=== PATIENT | female | born 1960 | race Caucasian/White ===

== ENCOUNTER → 2016-12-26 | Outpatient (CLI) | payer OTHER ==
[~2016-12-26] VITALS: Ht 154.9 cm; Wt 53.5 kg
[~2016-12-26] MED LIST: CALC500T49 PO; FISH1000 PO; MULT1TAB10 PO; NS 1,000 ML IV ONE; PROPOFOL 200 MG/20 ML VIAL As Ordered ONE; SIMV20TA2 PO; VITA100037 PO
[2016-12-26 13:26] VITALS: BP 110/72
== END | disposition home or self-care (01) ==
LOC: M OPP 10:11
PROVIDERS: ATTEND Internal Medicine Gastroenterology
DX: Z12.11 Encounter for screening for malignant neoplasm of colon (principal); D12.7 Benign neoplasm of rectosigmoid junction; K57.30 Diverticulosis of large intestine without perforation or abscess without bleeding; E78.5 Hyperlipidemia, unspecified; Z78.0 Asymptomatic menopausal state; F17.210 Nicotine dependence, cigarettes, uncomplicated; Z88.0 Allergy status to penicillin; Z79.899 Other long term (current) drug therapy

== ENCOUNTER → 2024-01-09 | Outpatient (CLI) | payer OTHER ==
[~2024-01-09] MED LIST changes: -NS 1,000 ML IV ONE; -PROPOFOL 200 MG/20 ML VIAL As Ordered ONE; -SIMV20TA2 PO; +SIMV20TA22 PO; -VITA100037 PO; +VITA100067 PO
== END ==
LOC: M RAD 10:07
PROVIDERS: ATTEND Internal Medicine
DX: Z12.2 Encounter for screening for malignant neoplasm of respiratory organs (principal); F17.210 Nicotine dependence, cigarettes, uncomplicated; R91.1 Solitary pulmonary nodule

== ENCOUNTER 2025-03-13 09:59 | Day surgery (SDC) | payer OTHER ==
[~2025-03-13] VITALS: Ht 154.9 cm; Wt 57.3 kg
[~2025-03-13 09:59] MED LIST changes: +CALC500T68 PO; +CLAR10CA3 PO; +FISH1CAP26 PO; +MULTTAB61 PO; +SIMV40TA20 PO; +VITA100093 PO
[2025-03-13] MEDS ORDERED: LIDOCAINE 2% 100 MG/5 ML SDV (FOR ANES.) As Ordered ONE (10:49)
[2025-03-13 11:06] VITALS: TEMP 99.8
[2025-03-13 11:21] VITALS: BP 150/66; O2SAT 99
== END 2025-03-13 11:35 | disposition home or self-care (01) ==
LOC: M OPP 09:59
PROVIDERS: ATTEND Surgery
DX: Z12.11 Encounter for screening for malignant neoplasm of colon (principal); K57.30 Diverticulosis of large intestine without perforation or abscess without bleeding; K64.8 Other hemorrhoids; Z88.0 Allergy status to penicillin; Z79.899 Other long term (current) drug therapy; F17.210 Nicotine dependence, cigarettes, uncomplicated

== ENCOUNTER → 2025-04-15 | Outpatient (CLI) | payer OTHER | LOC: M RAD 10:13 | PROVIDERS: ATTEND Internal Medicine | DX: Z12.2 Encounter for screening for malignant neoplasm of respiratory organs (principal); F17.210 Nicotine dependence, cigarettes, uncomplicated; J43.9 Emphysema, unspecified; R91.8 Other nonspecific abnormal finding of lung field ==